=== PATIENT | female | born 1965 | race Two or more races ===

== ENCOUNTER 2019-03-04 17:05 | Emergency (ER) | payer OTHER ==
[~2019-03-04] VITALS: Ht 157.5 cm; Wt 88.5 kg
[~2019-03-04 17:05] MED LIST: ATENOLOL25 GM
[2019-03-04] MEDS ORDERED: TOPROL XL25 M1 (17:34)
[2019-03-04] MEDS ORDERED: LIPITOR40 MG (17:34)
== END 2019-03-05 01:12 | disposition home or self-care (01) ==
LOC: ER 17:05
DX: K57.92 Diverticulitis of intestine, part unspecified, without perforation or abscess without bleeding (principal); N83.292 Other ovarian cyst, left side; K76.89 Other specified diseases of liver; R10.32 Left lower quadrant pain

== ENCOUNTER 2023-04-09 12:00 | Emergency (ER) | payer OTHER ==
[~2023-04-09] VITALS: Ht 157.5 cm; Wt 79.4 kg
[~2023-04-09 12:00] MED LIST changes: +LIPITOR40 MG; +TOPROL XL25 M1
[2023-04-09 13:16] LABS: URINE APPEARANCE Clear; URINE BILIRRUBIN Negative (NEGATIVE); URINE BLOOD Negative; URINE COLOR Yellow; URINE GLUCOSE Negative (NEGATIVE); URINE LEUKOCYTE Moderate; URINE NITRATE Negative; URINE PROTEIN Negative (NEGATIVE); URINE UROBILINOGEN 0.2 E.U./dl
[2023-04-09 13:17] LABS: URINE BACTERIA 89.4 uL (0.0-1933); URINE EPITHELIAL CELLS 11.1 uL (0.0-38.8); URINE RBC 3.8 uL (0.0-20.8); URINE WBC 18.8 uL (0.0-23.2)
[2023-04-09 13:29] LABS: CALCIUM 9.8 mg/dL (8.5-10.1); CREATININE SERUM 0.76 mg/dL (0.55-1.02); GFR 78.44; POTASSIUM 4.09 mEq/L (3.5-5.1)
[2023-04-09 14:01] LABS: HEMATOCRIT 40.3 % (36.0-45.00); HEMOGLOBIN 13.8 g/dL (12.0-15.00); MEAN CELL VOLUME 84.1 fL (80.00-100.00); MEAN CORPUSCULAR HEMOGLOBIN 28.8 pg (27.00-32.0); MEAN CORPUSCULAR HGB CONC 34.2 g/dl (32.0-36.0); PLATELET COUNT 233 K/uL (150-450); RED CELL DISTRIBUTION WIDTH 13.3 % (11.5-14.5)
== END 2023-04-09 16:25 | disposition home or self-care (01) ==
LOC: ER 12:00
PROVIDERS: Emergency Medicine
DX: R10.84 Generalized abdominal pain (principal)